=== PATIENT | female | born 1980 | race Caucasian/White ===

== ENCOUNTER → 2020-01-16 | Outpatient (CLI) | payer BC ==
--- NOTE | 2020-01-17 16:59 | MRI ---
EXAM DESCRIPTION: Thoracic Spine w/o Contrast: Magnetic Resonance Imaging. CLINICAL HISTORY: PAIN. Located low to mid back. COMPARISON: MRI scan lumbar spine without contrast on the same visit. TECHNIQUE: Multiplanar, multiple standard sequences, non contrast MRI, thoracic spine. FINDINGS: All the discs demonstrate normal signal. Disc spaces are preserved. Canal and foramina are patent. Facet joints are unremarkable. Conus terminates T12-L1. Cord with normal signal, no compression. Minimal dextroscoliosis lower thoracic spine. Paravertebral soft tissues are unremarkable. Normal marrow signal in the vertebral bodies and the posterior elements. Vertebral bodies are not compressed at any level. IMPRESSION: Normal noncontrast MRI scan of the thoracic spine. No evidence of chronic or acute or subacute thoracic spinal osseous or soft tissue injury. Electronically signed by: Harris Bojorquez MD 01/17/2020 4:57 PM CDT
--- NOTE | 2020-01-17 17:10 | MRI ---
EXAM DESCRIPTION: Lumbar Spine w/o Contrast : Magnetic Resonance Imaging. CLINICAL HISTORY: LOW BACK PAIN COMPARISON: Noncontrast MRI scan thoracic spine on the same visit. TECHNIQUE: Multiplanar, multiple standard sequences, non contrast MRI, lumbar spine. . FINDINGS: L5-S1: The disc is well visualized on axial T2 series 501, image 3. Desiccated signal in the disc with disc space preserved. Posterior midline bulge 4 mm abutting the thecal sac. Hyperintense T2 posterior midline annular fissure. AP canal diameter 10 mm. Posterior flavum ligaments and facet joints are negative. Mild left foraminal narrowing and mild to moderate right foraminal narrowing. Normal signal in the remaining discs. Disc spaces are maintained. No bulging. Facet joints and flavum ligaments are unremarkable. No canal or foraminal stenosis. Lower lumbar levoscoliosis. Paravertebral soft tissues negative.. Distal cord normal signal and caliber. Normal marrow signal in the remaining vertebral bodies and the posterior elements. Vertebral bodies are not compressed at any level. IMPRESSION: 1. Desiccation of the L5-S1 disc with posterior bulge and posterior midline annular fissure. Borderline mild central canal stenosis. No definite nerve impingement. Bilateral foraminal narrowing. 2. Lower lumbar levoscoliosis. The remainder of examination is unremarkable. Electronically signed by: Harris Bojroquez MD 01/17/2020 5:08 PM CDT
== END ==
LOC: MRI 13:00
PROVIDERS: ATTEND Nurse Practitioner
DX: M51.37 Other intervertebral disc degeneration, lumbosacral region (principal); M48.07 Spinal stenosis, lumbosacral region; M41.87 Other forms of scoliosis, lumbosacral region